=== PATIENT | male | born 1985 | race Caucasian/White ===

== ENCOUNTER 2024-04-03 08:47 | Inpatient (IN) | payer MEDICAID ==
[2024-04-02] MEDS: K and/or MAG REPLACEMENT MC SCH (08:00)
[~2024-04-03] VITALS: Ht 175.3 cm; Wt 104.5 kg
[2024-04-03 09:25] LABS: BASOPHILS # (AUTO) 0.1 X10'3 (0-0.2); BASOPHILS % (AUTO) 0.6 % (0-1); EOSINOPHILS % (AUTO) 0.1 % (0-6); HEMATOCRIT 47.4 % (42.0-52.0); HEMOGLOBIN 16.3 g/dl (14.0-17.9); LYMPHOCYTES # (AUTO) 1.8 X10'3 (1.1-4.8); LYMPHOCYTES % (AUTO) 18.2 % (21-51); MEAN CORPUSCULAR HEMOGLOBIN 30.6 PG (27.0-31.0); MEAN CORPUSCULAR HGB CONC 34.4 g/dL (33.0-36.5); MEAN PLATELET VOLUME 7.5 FL (7.4-10.4); MONOCYTES # (AUTO) 0.9 X10'3 (0-0.9); MONOCYTES % (AUTO) 8.8 % (2-12); NEUTROPHILS % (AUTO) 72.3 % (42-75); PLATELET COUNT 302 X10'3 (140-440); RED BLOOD COUNT 5.33 X10'6 (4.70-6.10); RED CELL DISTRIBUTION WIDTH 13.7 % (11.5-14.5); WHITE BLOOD COUNT 9.8 X10'3 (4.5-11.0)
[2024-04-03 09:55] LABS: ALANINE AMINOTRANSFERASE 319 U/L (12-78); ALBUMIN 3.6 G/DL (3.4-5.0); ALBUMIN/GLOBULIN RATIO 1.2 (1.1-1.5); ALKALINE PHOSPHATASE 72 IU/L (46-116); ANION GAP 12 (8-16); ASPARTATE AMINO TRANSFERASE 328 U/L (10-37); BILIRUBIN,TOTAL 2.1 MG/DL (0.1-1.0); BLOOD UREA NITROGEN 26 MG/DL (7-18); BUN/CREATININE RATIO 21.1 (10.0-20.0); CALCIUM 9.2 MG/DL (8.5-10.1); CHLORIDE 105 MMOL/L (99-107); CREATININE 1.23 MG/DL (0.60-1.10); POTASSIUM 4.4 MMOL/L (3.5-5.1); SODIUM 137 MMOL/L (135-145); TOTAL CARBON DIOXIDE 20.4 MMOL/L (24-32); TOTAL PROTEIN 6.7 G/DL (6.4-8.2); eCRCL 83 ML/MIN; eGFR 67 ML/MIN
[2024-04-03 09:56] LABS: GLUCOSE 120 MG/DL (70-104); PRO BRAIN NATRIURETIC PEPTIDE 4162 PG/ML (0-125)
[2024-04-03] MEDS ORDERED: magnesium sulf-water 2g/50mL 50 ML IV PRN (11:40)
[2024-04-03] MEDS ORDERED: potassium Cl 20 mEq SR tablet PO PRN ×2 (11:40)
[2024-04-03] MEDS ORDERED: magnesium Cl slow-release 64mg tablet PO PRN (11:40)
[2024-04-03] MEDS ORDERED: acetaminophen 325mg tablet PO PRN (11:40)
[2024-04-03] MEDS ORDERED: magnesium hydroxide 30ml (MOM) UD suspension PO PRN (11:40)
[2024-04-03] MEDS ORDERED: magnesium sulf-water 4G/100mL 100 ML IV PRN (11:40)
[2024-04-03] MEDS ORDERED: mag hydrox/Alum hydrox/simeth 30ml oral suspension PO PRN (11:40)
[2024-04-03] MEDS ORDERED: ondansetron/PF 4mg/2ml inj IV PRN (11:40)
[2024-04-03] MEDS ORDERED: potassium Cl 40MEQ/1/2NS 520ml 520 ML IV PRN (11:40)
[2024-04-03] MEDS: ipratropium/albuterol 3ml nebule NEB SCH (11:45)
[2024-04-03] MEDS: furosemide 10 MG/1 ML 10ml inj IV ONE (11:45)
[2024-04-03] MEDS ORDERED: ipratropium/albuterol 3ml nebule NEB PRN (11:45)
[2024-04-03 12:23] LABS: MAGNESIUM 2.1 MG/DL (1.5-2.4); PHOSPHORUS 3.2 MG/DL (2.3-4.5)
[2024-04-03 12:36] LABS: HEMOGLOBIN A1C 5.9 % (4.5-6.2)
[2024-04-03 13:02] LABS: INR 1.2 INR; PROTHROMBIN TIME 12.3 SECONDS (9.0-12.0)
[2024-04-03 13:31] LABS: BILIRUBIN,URINE NEGATIVE (Neg); CLARITY,URINE CLEAR (Clear); COLOR,URINE YELLOW (Yellow); GLUCOSE, URINE NEGATIVE (Neg); KETONES,URINE NEGATIVE (Neg); LEUKOCYTE ESTERASE ,URINE NEGATIVE (Neg); NITRITES, URINE NEGATIVE (Neg); OCCULT BLOOD,URINE NEGATIVE (Neg); PROTEIN,URINE NEGATIVE (Neg); UROBILINOGEN,URINE 0.2 E.U/dL (0.2-1.0)
[2024-04-03 13:33] LABS: UA COLLECTION TYPE VOIDED
[2024-04-03 13:47] LABS: URINE AMPHETAMINE SCREEN POSITIVE (Neg); URINE BARBITUATE SCREEN NEGATIVE (Neg); URINE BENZODIAZEPINES SCREEN NEGATIVE (Neg); URINE CANNABINOID SCREEN NEGATIVE (Neg); URINE COCAINE SCREEN NEGATIVE (Neg); URINE METHADONE SCREEN NEGATIVE (Neg); URINE OPIATE SCREEN NEGATIVE (Neg); URINE PHENCYCLIDINE SCREEN NEGATIVE (Neg)
[2024-04-03 13:55] VITALS: PULSE 65; RESP 20; O2SAT 99
[2024-04-03 14:02] VITALS: PULSE 60; RESP 20; O2SAT 100
[2024-04-03 16:41] VITALS: PULSE 66; RESP 16; O2SAT 96
[2024-04-03] MEDS: nicotine 21mg patch - 24 hr TD SCH (19:30)
[2024-04-03] MEDS: docusate sod 100mg capsule PO SCH (20:00)
[2024-04-03] MEDS ORDERED: methylPREDNISolone sod succ/PF 40mg inj. IV SCH (20:00)
[2024-04-03 20:18] VITALS: PULSE 80; RESP 20; O2SAT 98
[2024-04-03 20:25] VITALS: PULSE 69; RESP 20
[2024-04-03] MEDS: furosemide 40mg/4ml inj IV SCH (21:38)
[2024-04-03] MEDS: heparin, porcine 5000 units/ml vial SQ SCH (21:39)
[2024-04-03] MEDS ORDERED: EMPA10TA PO (23:57)
[2024-04-03] MEDS ORDERED: NICO-687 TD (23:57)
[2024-04-03] MEDS ORDERED: NICO-630 TOP (23:57)
[2024-04-03] MEDS ORDERED: FURO20TA4 (23:57)
[2024-04-03] MEDS ORDERED: NICO-631 TD (23:57)
[2024-04-03] MEDS ORDERED: SACU1TAB PO (23:57)
[2024-04-03] MEDS ORDERED: AMOX500T2 (23:57)
[2024-04-03] MEDS ORDERED: SPIR25TA5 (23:57)
[2024-04-03] MEDS ORDERED: METO-395 PO (23:57)
[2024-04-04] VITALS (12 sets, daily range): BP systolic 111–134; BP diastolic 71–79; PULSE 55–76; RESP 16–18; TEMP 97.1–97.8; O2SAT 96–99
[2024-04-04 06:49] LABS: INR 1.2 INR; PROTHROMBIN TIME 12.7 SECONDS (9.0-12.0)
[2024-04-04 07:46] LABS: ALANINE AMINOTRANSFERASE 320 U/L (12-78); ALBUMIN 3.8 G/DL (3.4-5.0); ALKALINE PHOSPHATASE 79 IU/L (46-116); ANION GAP 9 (8-16); ASPARTATE AMINO TRANSFERASE 177 U/L (10-37); BLOOD UREA NITROGEN 24 MG/DL (7-18); BUN/CREATININE RATIO 18.2 (10.0-20.0); CALCIUM 9.2 MG/DL (8.5-10.1); CHLORIDE 99 MMOL/L (99-107); CHOL/HDL RATIO 2.7 (0.00-4.99); CHOLESTEROL 150 MG/DL (0-200); CREATININE 1.32 MG/DL (0.60-1.10); GLUCOSE 98 MG/DL (70-104); HDL CHOLESTEROL 55 MG/DL (35-60); LDL CHOLESTEROL 81 MG/DL (50-100); MAGNESIUM 1.9 MG/DL (1.5-2.4); POTASSIUM 4.3 MMOL/L (3.5-5.1); SODIUM 136 MMOL/L (135-145); TOTAL CARBON DIOXIDE 28.1 MMOL/L (24-32); TOTAL PROTEIN 7.8 G/DL (6.4-8.2); TRIGLYCERIDES 125 MG/DL (20-135); eCRCL 77 ML/MIN; eGFR 61 ML/MIN
[2024-04-04] MEDS ORDERED: metoprolol succinate 25mg (24-HOUR) SR. Tablet PO SCH (08:00)
[2024-04-04] MEDS ORDERED: EMPAGLIFLOZIN 10 MG TABLET PO SCH (08:00)
[2024-04-04 09:01] LABS: BASOPHILS # (AUTO) 0.1 X10'3 (0-0.2); BASOPHILS % (AUTO) 0.8 % (0-1); EOSINOPHILS # (AUTO) 0.1 X10'3 (0-0.9); EOSINOPHILS % (AUTO) 1.4 % (0-6); HEMOGLOBIN 17.2 g/dl (14.0-17.9); LYMPHOCYTES # (AUTO) 2.7 X10'3 (1.1-4.8); LYMPHOCYTES % (AUTO) 29.7 % (21-51); MEAN CORPUSCULAR HEMOGLOBIN 29.9 PG (27.0-31.0); MEAN CORPUSCULAR HGB CONC 33.8 g/dL (33.0-36.5); MEAN CORPUSCULAR VOLUME 88.5 FL (78-98); MEAN PLATELET VOLUME 7.5 FL (7.4-10.4); MONOCYTES # (AUTO) 0.9 X10'3 (0-0.9); MONOCYTES % (AUTO) 10.4 % (2-12); NEUTROPHILS # (AUTO) 5.2 X10'3 (1.8-7.7); NEUTROPHILS % (AUTO) 57.7 % (42-75); PLATELET COUNT 313 X10'3 (140-440); RED BLOOD COUNT 5.77 X10'6 (4.70-6.10); RED CELL DISTRIBUTION WIDTH 13.5 % (11.5-14.5)
[2024-04-04] MEDS: EMPAGLIFLOZIN 10 MG TABLET PO SCH (10:07)
[2024-04-04] MEDS: metoprolol succinate 25mg (24-HOUR) SR. Tablet PO SCH (10:08)
[2024-04-04] MEDS: spironolactone 25 MG tablet PO SCH (10:09)
[2024-04-04] MEDS: sacubitril/valsartan 24mg-26mg tablet PO SCH (10:11)
[2024-04-04] MEDS ORDERED: BUDE10.22 INH (12:36)
[2024-04-04] MEDS ORDERED: ALBU18HF2 INH (12:36)
[2024-04-04] MEDS ORDERED: FURO-149 PO (12:36)
== END 2024-04-04 17:30 | disposition home or self-care (01) | DRG 140 ==
LOC: ER 08:49 → ED HOLD 10:23 → ORTHO 4S 23:30
PROVIDERS: ADMIT Family Medicine; ATTEND Family Medicine
DX: J44.1 Chronic obstructive pulmonary disease with (acute) exacerbation (principal); N17.0 Acute kidney failure with tubular necrosis; I50.23 Acute on chronic systolic (congestive) heart failure; I11.0 Hypertensive heart disease with heart failure; Z20.822 Contact with and (suspected) exposure to COVID-19; E11.9 Type 2 diabetes mellitus without complications; F15.10 Other stimulant abuse, uncomplicated; R74.01 Elevation of levels of liver transaminase levels
CPT/HCPCS: 36415; 71045; 76700; 80053; 80061; 80305; 81003; 82436; 82570; 83036; 83605; 83735; 83880; 83930; 83935; 84100; 84145; 84300; 84484; 85025; 85610; 87081; 87502; 87503; 87811; 93005; 93308; 94640; 94760; 99285; G0378; J1644; J1940